=== PATIENT | female | born 1970 | race Hispanic/Latino ===

== ENCOUNTER 2022-08-01 07:15 | Day surgery (SDC) | payer BC ==
[2022-07-29 13:33] LABS: Absolute Lymphocytes (CBC) 2.6 K/uL (0.7-4.9); Hematocrit 42.5 % (36.0-45.0); Lymphocytes % 37.4 % (15.3-44.8); MCV 98.2 fL (80-100); MPV 8.6 fL (7.6-11.3); RBC Red Blood Cell Count 4.33 M/uL (3.86-4.86)
[2022-07-29 13:43] LABS: SARS-CoV-2 Antigen Rapid Res Negative (Negative)
[2022-07-29 13:48] LABS: Albumin 4.1 g/dL (3.4-5.0); Bilirubin Total 0.5 mg/dL (0.2-1.0); Potassium 3.7 mmol/L (3.5-5.1); Protein, Total 8.2 g/dL (6.4-8.2)
--- NOTE | 2022-07-30 18:29 | EKG ---
Test Date: 2022-07-29 Test Time: 11:39:34 Small Machine Bindery Operator: ANTWAN MEASUREMENT RESULTS: Intervals: Rate: 61 OK: 136 QRSD: 78 QT: 398 QTc: 400 [place]: P: 54 OK: 136 QRS: 48 T: 3 INTERPRETIVE STATEMENTS: Normal sinus rhythm Normal ECG Compared to ECG 08/05/2009 15:38:08 No significant changes Electronically Signed On 07-30-22 18:28:11 CDT by Ace Mckeon
[2022-08-01] MEDS ORDERED: CEFOXITIN SODIUM 2 GM/VIAL ONE (07:44)
[2022-08-01] MEDS ORDERED: Ringers Lactate 1,000 ML IV ONE (07:44)
[2022-08-01] MEDS ORDERED: BUPIVACAINE 0.25% PF 30 ML VIAL ONE (07:55)
[2022-08-01] MEDS ORDERED: propofoL 200 MG/20 ML VIAL IV ONE (08:48)
[2022-08-01] MEDS ORDERED: MIDAZOLAM HCL 2 MG/2 ML INJ ONE (08:49)
[2022-08-01] MEDS ORDERED: FENTANYL CITR 100 MCG/2 ML ONE (08:49)
[2022-08-01] MEDS ORDERED: LIDOCAINE 2% MPF 5 ML VIAL ONE (08:49)
[2022-08-01] MEDS ORDERED: ROCURONIUM 50 MG/5 ML VIAL IV ONE (08:50)
[2022-08-01] MEDS ORDERED: ONDANSETRON 4 MG/2 ML VIAL ONE ×2 (08:50→09:19)
[2022-08-01] MEDS ORDERED: BUPIVACAINE 0.25% PF 30 ML VIAL IJ ONE ×2 (09:19)
[2022-08-01] MEDS ORDERED: dexAMETHasone 10 MG/ML VIAL ONE (09:19)
[2022-08-01] MEDS ORDERED: KETOROLAC 30 MG/ML INJ ONE (10:10)
[2022-08-01] MEDS ORDERED: GLYCOPYRROLATE 0.2 MG/ML SYR ONE (10:11)
[2022-08-01] MEDS ORDERED: NEOSTIGMINE 1 MG/ML -10 ML VIAL ONE (10:13)
--- NOTE | 2022-08-01 10:14 | P.OP ---
Preoperative diagnosis: Chronic cholecystitis with ICG Postoperative diagnosis: Chronic cholecystitis with ICG Primary procedure: Laparoscopic Cholecystectomy with ICG Anesthesia: GETA + Local Estimated blood loss: <5cc Specimen: Gallbladder Findings: distended GB Complications: None Transferred to: Recovery Room Condition: Good
[2022-08-01] MEDS: HYDROMORPHONE HCL 1 MG/ML INJ ONE ×4 (10:28→10:50)
[2022-08-01] MEDS ORDERED: MEPERIDINE HCL 50 MG/ML ONE (11:10)
[2022-08-01] MEDS ORDERED: PROMETHAZINE INJ 25 MG/ML AMP ONE (11:10)
[2022-08-01] MEDS: FENTANYL CITR 100 MCG/2 ML ONE ×2 (11:12→11:18)
[2022-08-01 11:27] VITALS: TEMP 97.3
--- NOTE | 2022-08-01 11:42 | OP ---
Date of Procedure: 08/01/2022 Surgeon: Aneesh Cain MD, Preoperative Diagnoses: Chronic cholecystitis with cholelithiasis. Postoperative Diagnoses: Chronic cholecystitis with cholelithiasis. Procedures Performed: Laparoscopic cholecystectomy with indocyanine green cholangiography. Anesthesia: General endotracheal plus local with 0.25% Marcaine. Estimated Blood Loss: Less than 5 cc. Specimen: Gallbladder. Findings: Distended gallbladder. Complications: None. Disposition: Patient was transferred to the recovery room in good condition. Procedure In Detail: After informed consent was obtained, patient was brought to the operating room, prepped and draped in the usual sterile fashion. After adequate anesthesia was achieved, a supraumb ilical area was anesthetized with 0.25% Marcaine, sharply incised. A 5 mm 0-degree optical trocar wa s introduced into the abdomen without evidence of complication. Insufflation was obtained to 15 mmHg . There was no injury to vital structures upon entry into abdomen. At this point, the patient was p ositioned in head up position. I placed 2 additional trocars, 1 in the epigastrium, 1 in the right u pper quadrant, and then, 1 additional trocar in the right mid abdomen. All these were 5 mm trocars p laced under direct vision without evidence of complication. The umbilical trocar was then upsized to a 12 mm under direct visualization without evidence of complication. At this time, I grabbed the loco yao's gallbladder, placed towards the patient's right shoulder. She has somewhat pendulous segment V of the liver which required minimal manipulation throughout the procedure to keep visualization op timal. At this point, after the gallbladder was placed towards the patient's right shoulder, I disse cted down to the Shakir's pouch of the gallbladder to dissect 2 structures identified both cystic d uct and cystic artery. Both these were encircled, skeletonized and a critical view of safety was obt ained. At this time, ICG cholangiography confirmed the anatomy at this point and the confluence of t he cystic duct and common duct junction was noted to be visualized at this time. After the structure s were skeletonized as described above, I placed double titanium clips on the proximal side and singl y on the distal side of both cystic duct and cystic artery. I then used Endo Georgie to ligate these 2 structures without any leakage of bile or blood. I then removed the gallbladder fat fossa without evidence of complication, placed in Endo Catch bag, removed from the umbilical trocar and sent off fo r pathologic examination. Insufflation was obtained at this point. I then irrigated the abdomen and then suctioned out the area after copiously irrigating the area. Clips were found to be in good ryan tomic position. No additional hemostatic measures were required. The patient was placed back in breana tral position. I then closed the umbilical trocar site using a [place]-Gael suture passer with 0 Vicryl in interrupted fashion with good approximation of tissues. The remaining trocars were left in place and the abdomen was completely desufflated under direct visualization without complication. A ll remaining trocars were removed. I decompressed the abdomen in its entirety. All skin sites were then copiously irrigated and closed with 4-0 Monocryl in a running fashion and Dermabond placed over top. The patient tolerated the procedure well without evidence of complication and transferred to [facility] in good condition. All counts were correct at the end of the case. VANESA/ZHANE Voice ID: [id number] Report ID: [id number]
[2022-08-01 11:53] VITALS: BP 105/66; O2SAT 97
== END 2022-08-01 12:55 | disposition home or self-care (01) ==
LOC: OR 07:15
PROVIDERS: ATTEND Surgery
PROC: BF03YZZ Plain Radiography of Gallbladder and Bile Ducts using Other Contrast (ICD-10-PCS; 2022-08-01)
PROC: 0FT44ZZ Resection of Gallbladder, Percutaneous Endoscopic Approach (ICD-10-PCS; 2022-08-01)
PROC: 0FT44ZZ Resection of Gallbladder, Percutaneous Endoscopic Approach (ICD-10-PCS; principal; 2022-08-01 09:00)
DX: K80.10 Calculus of gallbladder with chronic cholecystitis without obstruction (principal)
CPT/HCPCS: 93005; 85025; 36415; 88304; 80053; 87811; 47563; J2704; J2710; J2550; J2250; J3010 ×2; J1100; J2175; J1170 ×2; J7120; J0694; J2405 ×2; C9776; J2001